=== PATIENT | male | born 2000 | race African-American/Black ===

== ENCOUNTER 2021-03-14 06:28 | Emergency (ER) | payer SELFPAY ==
[~2021-03-14] VITALS: Ht 195.6 cm; Wt 83.0 kg
[2021-03-14 06:35] VITALS: BP 126/63
[2021-03-14] MEDS ORDERED: FAMOTIDINE 20MG/2ML VIAL IV STA (07:10)
[2021-03-14] MEDS ORDERED: MORPHINE SULFATE 4 MG/ML CPJ (NOT FOR IM USE) IV STA (07:10)
[2021-03-14] MEDS ORDERED: VISCOUS LIDOCAINE 2% 15 ML UDC PO STA (07:10)
[2021-03-14] MEDS ORDERED: SODIUM CHLORIDE 0.9% 1,000 ML IV ONE (07:15)
== END 2021-03-14 07:54 | disposition left against medical advice (07) ==
LOC: ER 06:28
DX: R11.2 Nausea with vomiting, unspecified (principal)
CPT/HCPCS: 99281; J7030